=== PATIENT | female | born 1985 | race Caucasian/White ===

== ENCOUNTER 2018-10-16 22:46 | Emergency (ER) | payer MEDICAID ==
--- NOTE | 2018-10-16 23:02 | Emergency Department Record ---
History of Present Illness - General Chief Complaint: Abdominal Pain Stated Complaint: ABD PAIN Time Seen by Provider: 10/16/18 22:47 Source: Patient Mode of Arrival: Ambulatory Limitations: No limitations - History of Present Illness Initial Comments: 32 yo at 13 weeks gestation female presents to ED for evaluation of suprapubic abdominal pain symptoms that began 2-3 days ago. Patient reports burning with urination, reports that she has been evaluated previously for her symptoms, however her urinalysis returns negative for infection. Patient denies fevers, chills, or vaginal discharge symptoms. Patient does report previous US imaging at 7 weeks gestation, reports that she sees Dr. Eller at her baseline. MD Complaint: Abdominal pain Onset/Timin -: Days(s) Location: Suprapubic Radiation: None Migration to: No migration Severity: Moderate Quality: Burning Consistency: Constant Improves With: Nothing Worsens With: Nothing Associated Symptoms: Denies other symptoms Review of Systems Constitutional: Denies: Chills, Fever, Malaise, Night sweats Eyes: Denies: Eye discharge, Eye pain ENT: Denies: Congestion, Ear pain, Epistaxis Respiratory: Denies: Cough, Dyspnea Cardiovascular: Denies: Chest pain, Dyspnea on exertion Endocrine: Denies: Fatigue, Heat or cold intolerance Gastrointestinal: Reports: Abdominal pain. Denies: Nausea, Vomiting Genitourinary: Reports: Dysuria. Denies: Discharge, Frequency, Hematuria, Incontinence, Retention Musculoskeletal: Denies: Arthralgia, Back pain Skin: Denies: Bruising, Change in color Neurological: Denies: Abnormal gait, Confusion, Headache, Seizure Psychiatric: Denies: Anxiety Hematological/Lymphatic: Denies: Anemia, Blood Clots Physical Exam - General General Appearance: Alert, Oriented x3, Cooperative, Moderate distress Limitations: No limitations - Head Head exam: Atraumatic, Normocephalic, Normal inspection Head exam detail: negative: Abrasion, Contusion, Lewis's sign, General ten derness, Hematoma, Laceration - Eye Eye exam: Normal appearance. negative: Conjunctival injection, Periorbital swelling, Periorbital tenderness, Scleral icterus - ENT Ear exam: negative: Auricular hematoma, Auricular trauma Nasal Exam: negative: Active bleeding, Discharge, Dried blood, Foreign body Mouth exam: negative: Drooling, Laceration, Muffled voice, Tongue elevation - Neck Neck exam: Normal inspection. negative: Meningismus, Tenderness - Respiratory Respiratory exam: Normal lung sounds bilaterally. negative: Rales, Respiratory distress, Rhonchi, Stridor - Cardiovascular Cardiovascular Exam: Regular rate, Normal rhythm, Normal heart sounds - GI/Abdominal GI/Abdominal exam: Soft, Tenderness (TTP to the suprapubic region on examination.). negative: Rebound, Rigid - Rectal Rectal exam: Deferred - exam: Deferred - Extremities Extremities exam: Normal inspection. negative: Pedal edema, Tenderness - Back Back exam: Denies: CVA tenderness (R), CVA tenderness (L) - Neurological Neurological exam: Alert, Normal gait, Oriented X3 - Psychiatric Psychiatric exam: Normal affect, Normal mood - Skin Skin exam: Normal color. negative: Abrasion Type of lesion: negative: abrasion Course Vital Signs 10/16/18 22:52 Temperature 98.8 F Pulse Rate [ 103 H Left] Respiratory 16 Rate Blood Pressure 130/85 [Left Arm] Pulse Ox 99 Disposition Disposition: Transfer Clinical Impression: Abdominal pain affecting Transfer To: [facility] Reason For Transfer: US imaging of the abdomen, possible OB consultation Accepting Physician: Paul Time Discussed w/Accepting Physician: 23:05 Condition: (2) Stable Forms: Patient Portal Access Time of Disposition: 23:05 Quality - Quality Measures Quality Measures: N/A, (14-50yr) - : US Determination Quality Measure: Measure #254: US Determination of Location ICD10 Codes Entered: Yes US Determination of Location: < Trans-Abdominal or Trans-Vaginal US Performed > [G8806] - : Rhogam Quality Measure: Measure #255: Rhogam for Rh-Negative Women Rhogam for Rh-Negative Women at Risk: < Rh-immunoglobulin (Rhogam) Ordered > [G8809] - Blood Pressure Screening Does Patient Have Any of the Following: No Blood Pressure Classification: Pre-Hypertensive BP Reading Systolic Measurement: 130 Diastolic Measurement: 85 Screening for High Blood Pressure: < Pre-Hypertensive BP, F/U Documented > [G8950] Pre-Hypertensive Follow-up Interventions: Referral to alternative/primary care provider.
== END 2018-10-16 23:18 | disposition short-term general hospital (02) ==
LOC: ER 22:46
DX: O26.891 Other specified pregnancy related conditions, first trimester (principal); R10.9 Unspecified abdominal pain; R30.0 Dysuria; Z3A.13 13 weeks gestation of pregnancy
CPT/HCPCS: 99285